=== PATIENT | male | born 1960 | race Caucasian/White ===

== ENCOUNTER 2020-03-05 11:49 | Outpatient (REF) | payer OTHER, SELFPAY ==
[2020-03-05 14:03] LABS: MANUAL DIFF FLAG NO
[2020-03-05 14:11] LABS: Basophils Absolute Auto 0.1 X10*3/uL (0.0-0.2); Basophils Percent Auto 0.8 % (0-2); Eosinophils Absolute Auto 0.2 X10*3/uL (0.0-0.4); Eosinophils Percent Auto 3.7 % (0-4); Hemoglobin 14.5 g/dl (14.0-18.0); Imm Gran Abs Auto 0.01 X10*3/uL (0.00-0.03); Imm Gran Pct Auto 0.2 % (0.0-0.4); Lymphocytes Absolute Auto 1.2 X10*3/uL (1.2-4.9); Lymphocytes Percent Auto 20.9 % (20-40); Mean Corpuscular HGB Conc 32.2 g/dl (31.0-36.0); Mean Corpuscular Volume 93.2 fL (80-98); Mean Platelet Volume 10.5 fL (9.4-12.4); Monocytes Absolute Auto 0.8 X10*3/uL (0.1-1.2); Monocytes Percent Auto 12.7 % (2-11); Neutrophils Absolute Auto 3.6 X10*3/uL (2.0-8.3); Neutrophils Percent Auto 61.7 % (45-73); Platelet Count 234 X10*3/uL (160-400); Red Blood Count 4.83 X10*6/uL (4.60-5.80); Red Cell Distribution Width 13.2 % (11.0-16.0); White Blood Count 5.9 X10*3/uL (4.8-10.8)
[2020-03-05 14:50] LABS: Alanine Aminotransferase 48 U/L (0-40); Albumin Level 4.9 g/dL (3.5-5.0); Alkaline Phosphatase 83 U/L (39-117); Anion Gap 13 (12-20); Aspartate Amino Transferase 32 U/L (5-37); Bilirubin Direct 0.2 mg/dL (0.0-0.5); Bilirubin Total 0.6 mg/dL (0.0-1.0); Blood Urea Nitrogen 26 mg/dL (9-16); Calcium 9.5 mg/dL (8.4-10.2); Carbon Dioxide 26 mmol/L (22-29); Chloride 109 mmol/L (96-108); Cholesterol 174 mg/dL; Estimated Glomerular Filt Rate > 60; Glucose Fasting 105 mg/dL (60-99); HDL Cholesterol 43 mg/dL; LDL Cholesterol Calculated 108 mg/dl; Potassium 4.3 mmol/l (3.3-5.1); Sodium 144 mmol/L (135-145); Total Protein 7.1 g/dL (6.5-8.0); Triglycerides 119 mg/dL
== END 2020-03-05 11:50 | disposition home or self-care (01) ==
LOC: HO.HMGCLDS 11:49
DX: I10 Essential (primary) hypertension (principal); E78.5 Hyperlipidemia, unspecified
CPT/HCPCS: 36415; 80053; 80061; 80076; 85025

== ENCOUNTER 2021-07-30 10:20 | Outpatient (REF) | payer OTHER, SELFPAY ==
[2021-07-30 10:22] LABS: MANUAL DIFF FLAG NO
[2021-07-30 10:30] LABS: Basophils Absolute Auto 0.1 X10*3/uL (0.0-0.2); Basophils Percent Auto 0.7 % (0-2); Eosinophils Absolute Auto 0.5 X10*3/uL (0.0-0.4); Eosinophils Percent Auto 6.7 % (0-4); Hematocrit 43.5 % (42.0-52.0); Hemoglobin 14.4 g/dl (14.0-18.0); Imm Gran Abs Auto 0.01 X10*3/uL (0.00-0.03); Imm Gran Pct Auto 0.1 % (0.0-0.4); Lymphocytes Absolute Auto 1.8 X10*3/uL (1.2-4.9); Lymphocytes Percent Auto 26.9 % (20-40); Mean Corpuscular HGB Conc 33.1 g/dl (31.0-36.0); Mean Corpuscular Volume 93.5 fL (80.0-98.0); Mean Platelet Volume 9.7 fL (9.4-12.4); Monocytes Absolute Auto 0.8 X10*3/uL (0.1-1.2); Monocytes Percent Auto 12.2 % (2-11); Neutrophils Absolute Auto 3.6 x10*3/uL (2.0-8.3); Neutrophils Percent Auto 53.4 % (45-73); Platelet Count 254 X10*3/uL (160-400); Red Blood Count 4.65 X10*6/uL (4.60-5.80); Red Cell Distribution Width 13.7 % (11.0-16.0); White Blood Count 6.8 X10*3/uL (4.8-10.8)
[2021-07-30 10:51] LABS: Appearance Urine CLEAR; Color Urine YELLOW; Glucose Urine UA NEG (NEG); Leukocyte Esterase Urine NEG (NEG); Nitrite Urine NEG (NEG); PH 5.5 (5.0-8.0); Specific Gravity - Urine 1.025 (1.005-1.025); Urine Blood NEG (NEG); Urine Ketones NEG (NEG); Urine Protein NEG (NEG-TRACE)
[2021-07-30 11:09] LABS: Alanine Aminotransferase 54 U/L (0-40); Albumin Level 4.4 g/dL (3.5-5.0); Alkaline Phosphatase 81 U/L (39-117); Anion Gap 12 (12-20); Aspartate Amino Transferase 41 U/L (5-37); Bilirubin Total 0.7 mg/dL (0.0-1.0); Blood Urea Nitrogen 19 mg/dL (9-16); Calcium 9.3 mg/dL (8.4-10.2); Carbon Dioxide 26 mmol/L (22-29); Chloride 109 mmol/L (96-108); Cholesterol 175 mg/dL; Estimated Glomerular Filt Rate > 60; Glucose Fasting 100 mg/dL (60-99); HDL Cholesterol 40 mg/dL; LDL Cholesterol Calculated 114 mg/dl; Potassium 4.3 mmol/L (3.3-5.1); Sodium 143 mmol/L (135-145); Total Protein 6.7 g/dL (6.5-8.0); Triglycerides 107 mg/dL
[2021-07-30 11:31] LABS: PSA,Total (Free>4and<10) 0.77 ng/mL (0.00-4.00)
== END 2021-07-30 10:21 | disposition home or self-care (01) ==
LOC: HO.LNP 10:20
PROVIDERS: Visit Provider Internal Medicine
DX: Z00.00 Encounter for general adult medical examination without abnormal findings (principal); Z12.5 Encounter for screening for malignant neoplasm of prostate; I10 Essential (primary) hypertension; E78.00 Pure hypercholesterolemia, unspecified
CPT/HCPCS: 80053; 80061; 81003; 84153; 85025

== ENCOUNTER 2022-08-04 12:37 | Outpatient (REF) | payer OTHER, SELFPAY ==
[2022-08-04 12:40] LABS: MANUAL DIFF FLAG NO
[2022-08-04 12:43] LABS: Basophils Absolute Auto 0.1 X10*3/uL (0.0-0.2); Basophils Percent Auto 0.9 % (0-2); Eosinophils Absolute Auto 0.5 X10*3/uL (0.0-0.4); Eosinophils Percent Auto 7.2 % (0-4); Hematocrit 46.4 % (42.0-52.0); Hemoglobin 15.3 g/dl (14.0-18.0); Imm Gran Abs Auto 0.01 X10*3/uL (0.00-0.03); Imm Gran Pct Auto 0.1 % (0.0-0.4); Lymphocytes Absolute Auto 2.4 X10*3/uL (1.2-4.9); Lymphocytes Percent Auto 31.3 % (20-40); Mean Corpuscular Hemoglobin 30.7 pg (27.0-33.0); Mean Platelet Volume 10.1 fL (9.4-12.4); Monocytes Absolute Auto 0.9 X10*3/uL (0.1-1.2); Monocytes Percent Auto 12.3 % (2-11); Neutrophils Absolute Auto 3.6 x10*3/uL (2.0-8.3); Neutrophils Percent Auto 48.2 % (45-73); Platelet Count 264 X10*3/uL (160-400); Red Blood Count 4.99 X10*6/uL (4.60-5.80); Red Cell Distribution Width 12.9 % (11.0-16.0); White Blood Count 7.5 X10*3/uL (4.8-10.8)
[2022-08-04 12:46] LABS: Appearance Urine Clear; Color Urine Yellow; Glucose Urine UA Negative (Negative); Leukocyte Esterase Urine Negative (Negative); Nitrite Urine Negative (Negative); Urine Blood Negative (Negative); Urine Ketones Negative (Negative); Urine Protein Trace mg/dL (Neg-Trace)
[2022-08-04 12:48] LABS: Bacteria Urine None Seen (None Seen); Hyaline Casts Urine 0-2 /LPF (0-2); RBC Urine 0-2 /HPF (0-2); Squamous Epithelial Cell Urine 0-2 /HPF (0-2); WBC Urine 0-5 /HPF (0-5)
[2022-08-04 16:01] LABS: Alanine Aminotransferase 46 U/L (0-40); Albumin Level 4.4 g/dL (3.5-5.0); Alkaline Phosphatase 94 U/L (39-117); Anion Gap 15 (12-20); Aspartate Amino Transferase 38 U/L (5-37); Bilirubin Total 0.5 mg/dL (0.0-1.0); Blood Urea Nitrogen 24 mg/dL (9-16); Calcium 9.3 mg/dL (8.4-10.2); Carbon Dioxide 26 mmol/L (22-29); Chloride 110 mmol/L (96-108); Cholesterol 173 mg/dL; Estimated Glomerular Filt Rate > 60; Glucose Fasting 105 mg/dL (60-99); HDL Cholesterol 43 mg/dL; LDL Cholesterol Calculated 109 mg/dl; Potassium 3.9 mmol/L (3.3-5.1); Sodium 147 mmol/L (135-145); Total Protein 6.4 g/dL (6.5-8.0); Triglycerides 107 mg/dL
[2022-08-04 16:10] LABS: PSA,Total (Free>4and<10) 0.86 ng/mL (0.00-4.00)
== END 2022-08-04 12:38 | disposition home or self-care (01) ==
LOC: HO.LNP 12:37
PROVIDERS: Visit Provider Internal Medicine
DX: Z00.00 Encounter for general adult medical examination without abnormal findings (principal); Z12.5 Encounter for screening for malignant neoplasm of prostate; E78.00 Pure hypercholesterolemia, unspecified; I10 Essential (primary) hypertension
CPT/HCPCS: 80053; 80061; 81001; 84153; 85025

== ENCOUNTER 2022-10-31 14:28 | Outpatient (REF) | payer OTHER, SELFPAY ==
--- NOTE | ~2022-10-31 | US_ITS ---
EXAMINATION: ULTRASOUND EXTREMITY NONVASCULAR CLINICAL INFORMATION: Left axillary lymphadenopathy. COMPARISON: None available. TECHNIQUE: Grayscale and color imaging of the left axilla using a linear transducer. FINDINGS: There are 2 deep left axillary lymph nodes. These measure 2.6 x 0.6 x 1.4 cm and 3 x 0.9 x 2.3 cm. These are upper normal in size. These demonstrate normal ultrasound morphology and flow. US/US extremity nonvascular coyle IMPRESSION: 2 axillary lymph nodes seen by ultrasound. These are both upper normal in size and demonstrate normal ultrasound morphology and flow.
== END 2022-10-31 14:29 | disposition home or self-care (01) ==
LOC: HO.HMGCX 14:28
PROVIDERS: PCP Internal Medicine; Visit Provider Internal Medicine
DX: R59.0 Localized enlarged lymph nodes (principal)
CPT/HCPCS: 76882

== ENCOUNTER 2023-05-18 11:58 | Outpatient (REF) | payer OTHER, SELFPAY ==
[2023-05-18 13:53] LABS: Alanine Aminotransferase 43 U/L (0-40); Albumin Level 4.5 g/dL (3.5-5.0); Alkaline Phosphatase 90 U/L (39-117); Aspartate Amino Transferase 34 U/L (5-37); Bilirubin Direct 0.2 mg/dL (0.0-0.5); Bilirubin Total 0.7 mg/dL (0.0-1.0); Total Protein 7.2 g/dL (6.5-8.0)
[2023-05-18 14:07] LABS: Cholesterol 173 mg/dL (<200); HDL Cholesterol 37 mg/dL (>40); LDL Cholesterol Calculated 102 mg/dL (<100); Triglycerides 171 mg/dL (<150)
[2023-05-18 14:45] LABS: Reflex LDLD? No
== END 2023-05-18 11:59 | disposition home or self-care (01) ==
LOC: HO.HMGCLDS 11:58
PROVIDERS: PCP Internal Medicine; Visit Provider Internal Medicine
DX: E78.00 Pure hypercholesterolemia, unspecified (principal)
CPT/HCPCS: 36415; 80061; 80076

== ENCOUNTER 2023-12-04 11:31 | Outpatient (REF) | payer OTHER, SELFPAY ==
[2023-12-04 13:58] LABS: MANUAL DIFF FLAG NO
[2023-12-04 14:10] LABS: Basophils Percent Auto 0.6 % (0-2); Eosinophils Absolute Auto 0.4 X10*3/uL (0.0-0.4); Hematocrit 46.4 % (42.0-52.0); Hemoglobin 15.4 g/dl (14.0-18.0); Imm Gran Abs Auto 0.02 X10*3/uL (0.00-0.03); Imm Gran Pct Auto 0.3 % (0.0-0.4); Lymphocytes Absolute Auto 1.7 X10*3/uL (1.2-4.9); Lymphocytes Percent Auto 26.9 % (20-40); Mean Corpuscular HGB Conc 33.2 g/dl (31.0-36.0); Mean Corpuscular Hemoglobin 30.7 pg (27.0-33.0); Mean Corpuscular Volume 92.6 fL (80.0-98.0); Mean Platelet Volume 10.3 fL (9.4-12.4); Monocytes Absolute Auto 0.8 X10*3/uL (0.1-1.2); Monocytes Percent Auto 13.2 % (2-11); Neutrophils Absolute Auto 3.4 x10*3/uL (2.0-8.3); Platelet Count 246 X10*3/uL (160-400); Red Blood Count 5.01 X10*6/uL (4.60-5.80); Red Cell Distribution Width 13.4 % (11.0-16.0); White Blood Count 6.4 X10*3/uL (4.8-10.8)
[2023-12-04 15:00] LABS: Alanine Aminotransferase 44 U/L (0-40); Albumin Level 4.5 g/dL (3.5-5.0); Alkaline Phosphatase 98 U/L (39-117); Anion Gap 12 (12-20); Aspartate Amino Transferase 33 U/L (5-37); Bilirubin Total 0.8 mg/dL (0.0-1.0); Blood Urea Nitrogen 23 mg/dL (9-16); Calcium 9.9 mg/dL (8.4-10.2); Carbon Dioxide 26 mmol/L (22-29); Chloride 111 mmol/L (96-108); Cholesterol 177 mg/dL (<200); Estimated Glomerular Filt Rate > 60; Glucose Random 106 mg/dL (60-115); HDL Cholesterol 42 mg/dL (>40); LDL Cholesterol Calculated 102 mg/dL (<100); Sodium 145 mmol/L (135-145); Total Protein 7.1 g/dL (6.5-8.0); Triglycerides 165 mg/dL (<150)
[2023-12-04 15:11] LABS: PSA,Total (Free>4and<10) 0.82 ng/mL (0.00-4.00)
== END 2023-12-04 11:32 | disposition home or self-care (01) ==
LOC: HO.HMGCLDS 11:31
PROVIDERS: PCP Internal Medicine; Visit Provider Internal Medicine
DX: Z00.00 Encounter for general adult medical examination without abnormal findings (principal); E78.00 Pure hypercholesterolemia, unspecified
CPT/HCPCS: 36415; 80053; 80061; 84153; 85025

== ENCOUNTER 2024-12-05 11:21 | Outpatient (REF) | payer MEDICARE, SELFPAY ==
--- OUTSIDE RECORDS SUMMARY | 2024-12-02 04:00 | XMS_ITS ---
Author Organization Alo Gomez MD Address [address] [place] [phone] Care Team Providers Care Edge Trimmer Mechanic Name Role Phone Alo Gomez Primary Care Provider [phone] REASON FOR VISIT FASTING LABS Encounters Encounter Location Date Provider Diagnosis Alo Gomez MD [address] [place] [address] [address] [place] [phone] 12/02/2024 Alo Gomez Blood tests for rout [...] Treatment Pending Test Test Name Order Date Complete Blood Count Auto Diff 5 Comprehensive [place]. Panel Fast 5 Lipid Panel 12/02/2024 PSA,Total (Free>4and<10) 12/02/2024 UA ClnCatch+Micro w/rflx Cult 12/02/2024 Next Appt Details Provider Name:Alo sotelor, 12/09/2024 02:30:00 PM, [address], [address], [place], [place], [phone], Progress Notes * SILAS NIXONDOB:[birth year] (64 yo M)Acc No.[id number]:12/02/2024 Progress Note Patient: SILAS MCGUIRE Provider: Fartun Gomez MD :1960 A ge:64 Y S ex:Male Date:12/02/2024 Address:[address] [place], [place] [phone] Subjective: * Chief Complaints: * 1 . FASTING LABS. * Medical History: Objective: * Vitals: Assessment: * Assessment: 1. B lood tests for routine general physical examination - Z00.00 (Primary) 2 .?Hypercholesterolemia - E78.00 3 . E ssential hypertension - I10 Plan: * Treatment: 2. H ypercholesterolemia L AB: Complete Blood Count Auto Diff L AB: Comprehensive [place]. Panel Fast L AB: Lipid Panel L AB: PSA,Total (Free>4and<10) L AB: UA ClnCatch+Micro w/rflx Cult 3. E ssential hypertension L AB: Complete Blood Count Auto Diff L AB: Comprehensive [place]. Panel Fast L AB: Lipid Panel L AB: PSA,Total (Free>4and<10) L AB: UA ClnCatch+Micro w/rflx Cult * * The named appointment provid er may or may not be the originator of this progress note, and it is not deemed complete until electronically signed by the appointment provider. Sign off status: Pending * Provider: Fartun Gomez MD Date: 12/02/2024 Generated for [place]/Kainitting on: 12/05/2024 12:03 PM EDT
[2024-12-05 14:28] LABS: MANUAL DIFF FLAG NO
[2024-12-05 14:34] LABS: Hematocrit 43.7 % (42.0-52.0); Hemoglobin 14.7 g/dl (14.0-18.0); Imm Gran Abs Auto 0.01 X10*3/uL (0.00-0.03); Imm Gran Pct Auto 0.2 % (0.0-0.4); Lymphocytes Absolute Auto 1.7 X10*3/uL (1.2-4.9); Mean Corpuscular HGB Conc 33.6 g/dl (31.0-36.0); Mean Corpuscular Hemoglobin 30.8 pg (27.0-33.0); Mean Corpuscular Volume 91.6 fL (80.0-98.0); NRBC Abs Auto 0.000 X10*3/uL (0.0-0.012); NRBC Pct Auto 0.0 /100WBC (0.0-0.2); Platelet Count 253 X10*3/uL (160-400); Red Blood Count 4.77 X10*6/uL (4.60-5.80); White Blood Count 6.2 X10*3/uL (4.8-10.8)
[2024-12-05 14:55] LABS: Alanine Aminotransferase 78 U/L (0-40); Albumin Level 4.5 g/dL (3.5-5.0); Alkaline Phosphatase 86 U/L (39-117); Anion Gap 13 (12-20); Aspartate Amino Transferase 65 U/L (5-37); Blood Urea Nitrogen 19 mg/dL (9-16); Calcium 9.1 mg/dL (8.4-10.2); Carbon Dioxide 23 mmol/L (22-29); Chloride 111 mmol/L (96-108); Cholesterol 153 mg/dL (<200); Estimated Glomerular Filt Rate > 60; HDL Cholesterol 44 mg/dL (>40); Potassium 3.7 mmol/L (3.3-5.1); Sodium 143 mmol/L (135-145); Total Protein 6.6 g/dL (6.5-8.0); Triglycerides 130 mg/dL (<150)
[2024-12-05 15:05] LABS: PSA,Total (Free>4and<10) 3.09 ng/mL (0.00-4.00)
== END 2024-12-05 11:22 | disposition home or self-care (01) ==
LOC: HO.HMGCLDS 11:21
PROVIDERS: PCP Internal Medicine; Visit Provider Internal Medicine
DX: Z00.00 Encounter for general adult medical examination without abnormal findings (principal); E78.00 Pure hypercholesterolemia, unspecified; I10 Essential (primary) hypertension; Z12.5 Encounter for screening for malignant neoplasm of prostate
CPT/HCPCS: 36415; 80053; 80061; 84153; 85025

== ENCOUNTER 2025-01-03 11:31 | Outpatient (REF) | payer MEDICARE, SELFPAY ==
--- OUTSIDE RECORDS SUMMARY | 2025-01-03 06:00 | XMS_ITS ---
Author Organization Alo Gomez MD Address [address] [place] [address] [address] [place] [phone] Care Team Providers Care Ornamental Metal Worker Name Role Phone Alo Gomez Primary Care Provider [phone] REASON FOR VISIT PSA Encounters Encounter Location Date Provider Diagnosis Alo Gomez MD [address] [place] [address] [place] [phone] 01/03/2025 Alo Gomez Rising PSA level R97.20 Assessments Encounter Date Diagnosis (ICD Code) Assessment Notes Treatment Notes Treatment Clinical Notes Section Notes 01/03/2025 Rising PSA level (ICD-10 - R97.20) Plan Of Treatment Pending Test Test Name Order Date PSA,Total (Free>4and<10) 01/03/2025 Next Appt Details Provider Name:Alo dalton, 01/09/2025 02:15:00 PM, [address] [place] [address], [address], [phone], Provider Name:Alo dalton, 06/09/2025 07:00:00 AM, [address] [place] [address], [address], [phone], Provider Name:Alo dalton, 06/13/2025 01:30:00 PM, [address] [place] [address], [address], [phone], Provider Name:Alo dalton, 12/04/2025 07:45:00 AM, [address] [place] [address], [phone], Provider Name:Alo Diallo ier, 12/11/2025 01:00:00 PM, [address], [address], [place], [phone], Progress Notes * SILAS NIXONDOB:[birth year] (64 yo M)Acc No.[id number]:01/03/2025 Progress Note Patient: SILAS MCGUIRE Provider: Fartun Gomez MD :1960 A ge:64 Y S ex:Male Date:01/03/2025 Address:[address] [place], [place] [phone] Subjective: * Chief Complaints: * 1 . PSA. * Medical History: Objective: * Vitals: Assessment: * Assessment: 1. R ising PSA level - R97.20 Plan: * Treatment: * Procedure Codes: 3 6415 VENIPUNCT, ROUTINE* * * The named appointment provid er may or may not be the originator of this progress note, and it is not deemed complete until electronically signed by the appointment provider. Sign off status: Pending * Provider: Fartun Gomez MD Date: 0 01/03/2025 Generated for Kg river/Ross/Kainitting on: 01/03/2025 11:34 AM EDT
[2025-01-03 12:53] LABS: PSA,Total (Free>4and<10) 2.42 ng/mL (0.00-4.00)
== END 2025-01-03 11:32 | disposition home or self-care (01) ==
LOC: HO.LNP 11:31
PROVIDERS: Visit Provider Internal Medicine
DX: R97.20 Elevated prostate specific antigen [PSA] (principal); Z12.5 Encounter for screening for malignant neoplasm of prostate
CPT/HCPCS: 84153

== ENCOUNTER 2025-02-04 10:34 | Outpatient (REF) | payer MEDICARE, SELFPAY ==
--- OUTSIDE RECORDS SUMMARY | 2024-12-02 04:00 | XMS_ITS ---
Author Organization Alo Gomez MD Address [address] [place] [phone] Care Team Providers Care Exercise Scientist Name Role Phone Alo Gomez Primary Care Provider [phone] Results Component Value Reference Range Notes Complete Blood Count Auto Di ff Reviewed date:12/05/2024 05:14:17 PM Interpretation: Performing Lab:[facility], [address] [place] [id number] Notes/Report: White Blood Count 6.2 4.8-10.8 X10*3/uL Red Blood Count 4.77 4.60-5.80 X10*6/uL Hemoglobin 14.7 14.0-18.0 g/dl Hematocrit 43.7 42.0-52.0 % Mean Corpuscular Volume 91.6 80.0-98.0 fL Mean Corpuscular Hemoglobin 30.8 27.0-33.0 pg Mean Corpuscular HGB Conc 33.6 31.0-36.0 g/dl Red Cell Distribution Width 12.9 11.0-16.0 % Platelet Count 253 160-400 X10*3/uL Mean Platelet Volume 10.2 9.4-12.4 fL Neutrophils Percent Auto 54.8 45-73 % Imm Gran Pct Auto 0.2 0.0-0.4 % Lymphocytes Percent Auto 26.8 20-40 % Monocytes Percent Auto 13.5 2-11 % Eosinophils Percent Auto 3.9 0-4 % Basophils Percent Auto 0.8 0-2 % NRBC Pct Auto 0.0 0.0-0.2 /100WBC Neutrophils Absolute Auto 3.4 2.0-8.3 x10*3/u L Imm Gran Abs Auto 0.01 0.00-0.03 X10*3/uL Lymphocytes Absolute Auto 1.7 1.2-4.9 X10*3/u L Monocytes Absolute Auto 0.8 0.1-1.2 X10*3/uL Eosinophils Absolute Auto 0.2 0.0-0.4 X10*3/u L Basophils Absolute Auto 0.1 0.0-0.2 X10*3/uL NRBC Abs Auto 0.000 0.0-0.012 X10*3/uL Lipid Panel Reviewed date:12/05/2024 05:14:24 PM Interpretation: Performing Lab:[address] [id number] Notes/Report: Triglycerides 130 <150 mg/dL Desirable Triglyceride: less than 150 mg/dL Borderline High Triglyceride 150-199 mg/dL High Triglyceride: 200-499 mg/dL Very High Triglyceride: greater than or equal to 5OO mg/dL Cholesterol 153 <200 mg/dL Desirable Cholesterol: less than 200 mg/dL Borderline High Cholesterol: 200-239 mg/dL High Cholesterol: greater than 239 mg/dL LDL Cholesterol Calculated 83 <100 mg/dL Desirable LDL: less than 100 mg/dL Near Optimal/Above Optimal LDL: 110-129 mg/dL Borderline High LDL: 130-159 mg/dL High LDL: 160-189 mg/dL Very High LDL: greater than or equal to 190 mg/dL HDL Cholesterol 44 >40 mg/dL Desirable HDL: greater than 40 mg/dL Note: This HDL assay may give artificially low results in patients with liver disease. PSA,Total (Free>4and<10) Reviewed date:12/10/2024 07:13:08 AM Interpretation:12-09-2024 Performing Lab:[address] [id number] Notes/Report: PSA,Total (Free>4and<10) 3.09 0.00-4.00 ng/mL A Free PSA was not performed: The percentage of Free PSA can be used to enhance the differentiation of prostate cancer from benign prostatic disease in subjects whose PSA levels are between 4.0 and 10.0 ng/mL. For subjects whose PSA levels are below 4.0 or above 10.0 ng/mL, the risk of prostate cancer is determined on the basis of the PSA alone. Therefore the % Free PSA is recommended only for those subjects whose PSA levels are between 4.0 and 10.0 ng/mL. PSA methodology: Castro Alinity i Chemiluminescent Microparticle Immunoassay (CMIA) REASON FOR VISIT FASTING LABS Encounters Encounter Location Date Provider Diagnosis Alo Gomez MD [address] [place] [address] [place] [phone] 12/02/2024 Alo Gomez Blood tests for rout ine general physical examination Z00.00 ; Hypercholesterolemia E78.00 and Essential hypertension I10 Assessments Encounter Date Diagnosis (ICD Code) Assessment Notes Treatment Notes Treatment Clinical Notes Section Notes 12/02/2024 Blood tests for rout ine general physical examination (ICD-10 - Z00.00) 12/02/2024 Hypercholesterolemia (ICD-10 - E78.00) 12/02/2024 Essential hypertensi on (ICD-10 - I10) Plan Of Treatment Pending Test Test Name Order Date Comprehensive [place]. Panel Fast UA ClnCatch+Micro w/rflx Cult 12/02/2024 Next Appt Details Provider Name:Alo dalton, 06/09/2025 07:00:00 AM, [address] [place] [address], [place] [address], [place], [place], [phone], Provider Name:Alo dalton, 06/13/2025 01:30:00 PM, [address] [place] [address], [address], [phone], Provider Name:Alo dalton, 12/04/2025 07:45:00 AM, [address] [place] [address], [address], [phone], Provider Name:Alo dalton, 12/11/2025 01:00:00 PM, [address] [place] [address], [address], [phone], Progress Notes * SILAS NIXONDOB:[birth year] (64 yo M)Acc No.[id number]:12/02/2024 Progress Note Patient: SILAS MCGUIRE Provider: Fartun Gomez MD :1960 A ge:64 Y S ex:Male Date:12/02/2024 Address:[address] [place], [place] [phone] Subjective: * Chief Complaints: * 1 . FASTING LABS. * Medical History: Objective: * Vitals: Assessment: * Assessment: 1. B lood tests for routine general physical examination - Z00.00 (Primary) 2 .?Hypercholesterolemia - E78.00 3 . E ssential hypertension - I10 Plan: * Treatment: 2. H ypercholesterolemia L AB: Comprehensive [place]. Panel Fast L AB: UA ClnCatch+Micro w/rflx Cult L AB: Complete Blood Count Auto Diff (Collection Date & Time - 12/05/2024 11:27 AM) L AB: Lipid Panel (Collection Date & Time - 12/05/2024 11:27 AM) L AB: PSA,Total (Free>4and<10) (Collection Date & Time - 12/05/2024 11:27 AM) 3. E ssential hypertension L AB: Comprehensive [place]. Panel Fast L AB: UA ClnCatch+Micro w/rflx Cult L AB: Complete Blood Count Auto Diff (Collection Date & Time - 12/05/2024 11:27 AM) L AB: Lipid Panel (Collection Date & Time - 12/05/2024 11:27 AM) L AB: PSA,Total (Free>4and<10) (Collection Date & Time - 12/05/2024 11:27 AM) * * The named appointment provid er may or may not be the originator of this progress note, and it is not deemed complete until electronically signed by the appointment provider. Sign off status: Pending * Provider: Fartun Gomez MD Date: 0 12/02/2024 Generated for [place] river/Ross/Kainitting on: 0 02/04/2025 12:24 PM EDT
--- OUTSIDE RECORDS SUMMARY | 2024-12-09 10:30 | XMS_ITS ---
Author Organization Alo Gomez MD Address [address] [place] [phone] Care Team Providers Care Leveling Machine Operator Name Role Phone Alo Gomez Primary Care Provider Allergies No Known Allergies REASON FOR VISIT ANNUAL EXAM/ must see PSA Medications Medication SIG (Take, Route, Frequency, Duration) Notes Start Date End Date Status Losartan Potassium 100 MG TAKE 1 TABLET BY MOUTH ONCE DAILY Active Metoprolol Tartrate 100 MG TAKE 1 TABLET BY MOUTH TWICE DAILY WITH FOOD Active NIFEdipine ER Osmotic Release 60 MG TAKE 1 TABLET BY MOUTH ONCE DAILY ON AN EMPTY STOMACH Active Fish Oil 1200 MG 1 capsule Orally Onc e a day for 30 day(s) Active Aspirin 81 81 MG 1 tablet Orally Once a day for 30 day(s) Active Atorvastatin Calcium 80 MG TAKE 1 TABLET BY MOUTH ONCE DAILY Active Social History Tobacco Use: Social History Observation Description Date Details (start date - stop date) Former Smoker NA - NA Tobacco Use/Smoking Question Answer Notes Patient is a former smoker How long has it been since y ou last smoked? 5-10 years Additional Findings: Tobacco Non-User Fo rmer smoker, currently using no form of tobacco Alcohol Screen Question Answer Notes Did you have a drink contain ing alcohol in the past year? Yes How often did you have a dri nk containing alcohol in the past year? 2 to 4 times a month (2 points) How many drinks did you have on a typical day when you were drinking in the past year? 1 or 2 drinks (0 point) How often did you have 6 or more drinks on one occasion in the past year? Never (0 point) Points 2 Interpretation Negative Vital Signs Blood pressure systolic 144 mm Hg 12/10/19 25 Blood pressure diastolic 70 mm Hg 025 Height 73 in 12/09/2024 Weight 230 lbs 12/09/2024 BMI 30.34 kg/m2 12/09/2024 Encounters Encounter Location Date Provider Diagnosis Alo Gomez MD [address] [place] [address] [address] [place], [place] [phone] 12/09/2024 Alo Gomez Rising PSA level R97 .20 ; Encounter for general adult medical examination without abnormal findings Z00.00 ; Hypercholesterolemia E78.00 ; Essential hypertension I10 and Depression screening Z13.31 Assessments Encounter Date Diagnosis (ICD Code) Assessment Notes Treatment Notes Treatment Clinical Notes Section Notes 12/09/2024 Rising PSA level (IC D-10 - R97.20) will recheck in 3 months 12/09/2024 Encounter for genera l adult medical examination without abnormal findings (ICD-10 - Z00.00) Labs reviewed and discussed with patient 12/09/2024 Hypercholesterolemia (ICD-10 - E78.00) doing well on meds, will contonue current regiment 12/09/2024 Essential hypertensi on (ICD-10 - I10) well controlled, will continue current regiment 12/09/2024 Depression screening (ICD-10 - Z13.31) negative screen Plan Of Treatment Medication Medication Name Sig Start Date Stop Date Notes Losartan Potassium 100 MG TAKE 1 TABLET BY MOUTH ONCE DAILY Metoprolol Tartrate 100 MG TAKE 1 TABLET BY MOUTH TWICE DAILY WITH FOOD NIFEdipine ER Osmotic Releas e 60 MG TAKE 1 TABLET BY MOUTH ONCE DAILY ON AN EMPTY STOMACH Atorvastatin Calcium 80 MG TAKE 1 TABLET BY MOUTH ONCE DAILY Treatment Notes Assessment Notes Rising PSA level will recheck in 3 mo [facility] Encounter for general adult medical examination without abnormal findings Labs reviewed and discussed with patient Hypercholesterolemia doing well on meds, will contonue current regiment Essential hypertension well controlled, will continue current regiment Depression screening negative screen Next Appt Details Follow Up: 4 Weeks, Reason: Provider Name:Alo dalton, 06/09/2025 07:00:00 AM, [address] [place] [address], [address], [place], [place], [phone], Provider Name:Alo dalton, 06/13/2025 01:30:00 PM, [address] [place] [address], [address], [place], [place], [phone], Provider Name:Alo Diallo ier, 12/04/2025 07:45:00 AM, [address], [address], [place], [phone], Provider Name:Alo Diallo ier, 12/11/2025 01:00:00 PM, [address], [address], [place], [phone], Progress Notes * SILAS NIXONDOB:[birth year] (64 yo M)Acc No.[id number]:12/09/2024 Progress Notes Patient: SILAS MCGUIRE Provider: Fartun Gomez MD :1960 A ge:64 Y S ex:Male Date:12/09/2024 Address:[address] [place], [place] [phone] Subjective: * Chief Complaints: * A NNUAL EXAM/ must see PSA * HPI: D epression Screening: PHQ-9 L ittle interest or pleasure in doing things N ot at all, F eeling down, depressed, or hopeless N ot at all, T rouble falling or staying asleep, or sleeping too much N ot at all, F eeling tired or having little energy N ot at all, P oor appetite or overeating N ot at all, F eeling bad about yourself or that you are a failure, or have let yourself or your family down N ot at all, T rouble concentrating on things, such as reading the newspaper or watching television N ot at all, M oving or speaking so slowly that other people could have noticed; or the opposite, being so fidgety or restless that you have been moving around a lot more than usual N ot at all, T houghts that you would be better off or of hurting yourself in some way N ot at all, T otal Score 0 . I nterpretation and Intervention D epression Screening Findings N egative, F ollow-Up for Depression : review of PHQ-9 found negative result, no follow-up needed. C ommunication Needs: Communication Needs D oes the patient have a hearing impairment N o, D oes the patient have a vision impairment? Y es, I f yes, what is the vision impairment? G lasses, D oes the patient have a cognition impairment? N o. F all Risk: History H ave you had any falls with injury in the past year? N o, H ave you had two or more falls in the past year? N o. S DELMIS Questions: SDOH Questions I n the past year have you been worried about losing housing? N o, I n the past year have you or any family members you live with been unable to get any of the following when it was really needed? Check all that apply: N one. S ymptom(s): patient is a 64 yo male here for annual visit with review of recent labs and follow up of chronic issues. * ROS: G eneral/Constitutional: Change in appetite d enies. C hills d enies. F ever d enies. O phthalmologic: Blurred vision d enies. D ischarge d enies. P ain d enies. E NT: Decreased hearing d enies. S ore throat d enies.?Swollen glands d enies. E ndocrine: Cold intolerance d enies. E xcessive thirst d enies. H eat intolerance d enies. W eight loss d enies. R espiratory: Cough d enies. S hortness of breath at rest d enies. S hortness of breath with exertion d enies. W heezing d enies. C ardiovascular: Chest pain at rest d enies. C hest pain with exertion?denies. I rregular heartbeat d enies. S hortness of breath d enies. ? G astrointestinal: Abdominal pain d enies. C hange in bowel habits d enies. D iarrhea d enies. N ausea d enies. R ectal bleeding d enies. V omiting d enies . G enitourinary: Blood in urine d enies. D ifficulty urinating d enies. F requent urination d enies. M usculoskeletal: Painful joints d enies. W eakness d enies. ? S kin: Dry skin d enies. I tching d enies. D enies?Mole(s), changes in moles, new moles or any lesions of concern. D enies P hotosensitivity. R ginger d enies. N eurologic: Dizziness d enies. F ainting d enies. H eadache?denies. * Medical History: * Surgical History: * Hospitalization/Major Diagno stic Procedure: * Family History: F ather: 89 yrs. M other: 86 yrs. 1 brother(s) . . Father - kidney failure Mother- lung cancer 1 brother 62 [place], Denies mental health/substance abuse family history, Denies mental health/substance abuse family history, No pertinent family medical history. * Social History: T obacco Use: T obacco Use/Smoking P atient is a f ormer smoker, H ow long has it been since you last smoked? 5 -10 years, A dditional Findings: Tobacco Non-User F ormer smoker, currently using no form of tobacco. D rugs/Alcohol: A lcohol Screen D id you have a drink containing alcohol in the past year? Y es, H ow often did you have a drink containing alcohol in the past year? 2 to 4 times a month (2 points), H ow many drinks did you have on a typical day when you were drinking in the past year? 1 or 2 drinks (0 point), H ow often did you have 6 or more drinks on one occasion in the past year? N ever (0 point), P oints 2 , I nterpretation N egative. M iscellaneous: C affeine: yes, frequency:, 1-2 cups per day. Children: no. Community involvements: no. Exercise: yes, weights, karate, hikes. Housing: owning. Living with: spouse. Marital status: . Occupation: weeks/months/years, works part-time. Pets: none. Travel outside of the [place]: no. * Medications: T akingAspirin 81 81 MG Tablet Delayed Release 1 tablet Orally Once a day Fish Oil 1200 MG Capsule 1 capsule Orally Once a day Atorvastatin Calcium 80 MG Tablet TAKE 1 TABLET BY MOUTH ONCE DAILY NIFEdipine ER Osmotic Release 60 MG Tablet Extended Release 24 Hour TAKE 1 TABLET BY MOUTH ONCE DAILY ON AN EMPTY STOMACH Metoprolol Tartrate 100 MG Tablet TAKE 1 TABLET BY MOUTH TWICE DAILY WITH FOOD Losartan Potassium 100 MG Tablet TAKE 1 TABLET BY MOUTH ONCE DAILY Medication List reviewed and reconciled with the patientTaking Aspirin 81 81 MG Tablet Delayed Release 1 tablet Orally Once a day Taking Fish Oil 1200 MG Capsule 1 capsule Orally Once a day Taking Atorvastatin Calcium 80 MG Tablet TAKE 1 TABLET BY MOUTH ONCE DAILY Taking NIFEdipine ER Osmotic Release 60 MG Tablet Extended Release 24 Hour TAKE 1 TABLET BY MOUTH ONCE DAILY ON AN EMPTY STOMACH Taking Metoprolol Tartrate 100 MG Tablet TAKE 1 TABLET BY MOUTH TWICE DAILY WITH FOOD Taking Losartan Potassium 100 MG Tablet TAKE 1 TABLET BY MOUTH ONCE DAILY Medication List reviewed and reconciled with the patient * Allergies: N .K.D.A.yes[Allergies Verified] Objective: * Vitals: H t: 73, Wt: 230, BMI:30.34, BP:144/70, Repeat BP:132/68, Wt-k.33. * P ast Orders: L ab:Comprehensive Met. Panel (Order Date - 12/05/2024) (Collection Date & Time - 12/05/2024 11:27 AM) Value Reference Range Sodium 143 135-145 - mmol/L Bilirubin Total 0.5 0.0-1.0 - mg/dL Aspartate Amino Transferase 65 H 5-37 - U/L Alanine Aminotransferase 78 H 0-40 - U/L Total Protein 6.6 6.5-8.0 - g/dL Albumin Level 4.5 3.5-5.0 - g/dL Alkaline Phosphatase 86 39-117 - U/L Potassium 3.7 3.3-5.1 - mmol/L Chloride 111 H 96-108 - mmol/L Carbon Dioxide 23 22-29 - mmol/L Anion Gap 13 12-20 - Blood Urea Nitrogen 19 H 9-16 - mg/dL Creatinine 0.91 0.5-1.4 - mg/dL Estimated Glomerular Filt Rate > 60 - Glucose Random 112 60-115 - mg/dL Calcium 9.1 8.4-10.2 - mg/dL L ab:Lipid Panel (Order Date - 12/02/2024) (Collection Date & Time - 12/05/2024 11:27 AM) Value Reference Range Triglycerides 130 <150 - mg/dL Cholesterol 153 <200 - mg/dL LDL Cholesterol Calculated 83 <100 - mg/dL HDL Cholesterol 44 >40 - mg/dL L ab:Complete Blood Count Auto Diff (Order Date - 12/02/2024) (Collection Date & Time - 12/05/2024 11:27 AM) Value Reference Range White Blood Count 6.2 4.8-10.8 - X10*3/uL Red Blood Count 4.77 4.60-5.80 - X10*6/uL Hemoglobin 14.7 14.0-18.0 - g/dl Hematocrit 43.7 42.0-52.0 - % Mean Corpuscular Volume 91.6 80.0-98.0 - fL Mean Corpuscular Hemoglobin 30.8 27.0-33.0 - pg Mean Corpuscular HGB Conc 33.6 31.0-36.0 - g/ dl Red Cell Distribution Width 12.9 11.0-16.0 - % Platelet Count 253 160-400 - X10*3/uL Mean Platelet Volume 10.2 9.4-12.4 - fL Neutrophils Percent Auto 54.8 45-73 - % Imm Gran Pct Auto 0.2 0.0-0.4 - % Lymphocytes Percent Auto 26.8 20-40 - % Monocytes Percent Auto 13.5 H 2-11 - % Eosinophils Percent Auto 3.9 0-4 - % Basophils Percent Auto 0.8 0-2 - % NRBC Pct Auto 0.0 0.0-0.2 - /100WBC Neutrophils Absolute Auto 3.4 2.0-8.3 - x10* 3/uL Imm Gran Abs Auto 0.01 0.00-0.03 - X10*3/uL Lymphocytes Absolute Auto 1.7 1.2-4.9 - X10* 3/uL Monocytes Absolute Auto 0.8 0.1-1.2 - X10*3/ uL Eosinophils Absolute Auto 0.2 0.0-0.4 - X10* 3/uL Basophils Absolute Auto 0.1 0.0-0.2 - X10*3/ uL NRBC Abs Auto 0.000 0.0-0.012 - X10*3/uL * Examination: G eneral Examination: GENERAL APPEARANCE: w ell developed, well nourished, in no acute distress. HEAD: n ormocephalic, atraumatic. EYES: p upils equal, round, reactive to light and accommodation, sclera non-icteric. EARS: n ormal. ORAL CAVITY: m ucosa moist. THROAT: c lear. NECK/THYROID: n garrett supple, full range of motion, no cervical lymphadenopathy, no bruits. SKIN: w arm and dry, no suspicious lesions. HEART: r egular rate and rhythm, S1, S2 normal, no murmurs.? LUNGS: c lear to auscultation bilaterally. ABDOMEN: s oft, nontender, nondistended, bowel sounds present, normal, no organomegaly , no masses palpable. RECTAL EXAM: d eclined. MALE GENITOURINARY: d eclined. EXTREMITIES: n o clubbing, cyanosis, or edema. NEUROLOGIC: n onfocal, motor strength normal upper and lower extremities, sensory exam intact. Assessment: * Assessment: 1. E ncounter for general adult medical examination without abnormal findings - Z00.00 (Primary) 2 . R ising PSA level - R97.20 3 . H ypercholesterolemia - E78.00 4 . E ssential hypertension - I10 5 . D epression screening - Z13.31 Plan: * Treatment: 2. R ising PSA level L AB: PSA,Total (Free>4and<10) (Ordered for 01/06/2025) Notes: will recheck in 3 months 3. H ypercholesterolemia Continue Atorvastatin Calcium Tablet, 80 MG, TAKE 1 TABLET BY MOUTH ONCE DAILY. Notes: doing well on meds, will contonue current regiment 4. E ssential hypertension Continue NIFEdipine ER Osmotic Release Tablet Extended Release 24 Hour, 60 MG, TAKE 1 TABLET BY MOUTH ONCE DAILY ON AN EMPTY STOMACH; C ontinue Metoprolol Tartrate Tablet, 100 MG, TAKE 1 TABLET BY MOUTH TWICE DAILY WITH FOOD; C ontinue Losartan Potassium Tablet, 100 MG, TAKE 1 TABLET BY MOUTH ONCE DAILY. Notes: well controlled, will continue current regiment 5. D epression screening Notes: negative screen * Procedure Codes: * Follow Up: 4 Weeks * * Sign off status: Completed true * Provider: Fartun Gomez MD Date: 0 12/09/2024 Generated for Kg river/Ross/Kainitting on: 0 02/04/2025 12:25 PM EDT History and Physical Notes * HPI (History of Present Illness) Category Sub-Category Detail Notes Category Not es Symptom(s) patient is a 64 yo male here for annual visit with review of recent labs and follow up of chronic issues Depression Screening PHQ-9 Little inte rest or pleasure in doing things: Not at all Feeling down, depressed, or hopeless: No t at all Trouble falling or staying asleep, or sl eeping too much: Not at all Feeling tired or having little energy: N ot at all Poor appetite or overeating: Not at all Feeling bad about yourself o r that you are a failure, or have let yourself or your family down: Not at all Trouble concentrating on thi ngs, such as reading the newspaper or watching television: Not at all Moving or speaking so slowly that other people could have noticed; or the opposite, being so fidgety or restless that you have been moving around a lot more than usual: Not at all Thoughts that you would be b pieter off or of hurting yourself in some way: Not at all Total Score: 0 Interpretation and Intervention Depression Venkatesh main Findings: Negative Follow-Up for Depression: : review of PH Q-9 found negative result, no follow-up needed SDOH Questions SDOH Questions In the past year have you been worried about losing housing?: No In the past year have you or any family members you live with been unable to get any of the following when it was really needed? Check all that apply:: None Fall Risk History Have you had any falls with injury i n the past year?: No Have you had two or more falls in the st year?: No Communication Needs Communication Needs Does the patient have a hearing impairment: No Does the patient have a vision impairmen t?: Yes If yes, what is the vision impairment?: Glasses Does the patient have a cognition impair ment?: No Examination Category Sub-Category Detail Notes Category Not es General Examination GENERAL APPEARANCE: well dev eloped, well nourished, in no acute distress HEAD: normocephalic, atrau matic EYES: pupils equal, round, reactive to light and accommodation, sclera non-icteric EARS: normal THROAT: clear NECK/THYROID: neck supple, full ra nge of motion, no cervical lymphadenopathy, no bruits HEART: regular rate and rhy thm, S1, S2 normal, no murmurs LUNGS: clear to auscultatio n bilaterally ABDOMEN: soft, nontender, non distended, bowel sounds present, normal, no organomegaly , no masses palpable NEUROLOGIC: nonfocal, motor stre ngth normal upper and lower extremities, sensory exam intact SKIN: warm and dry, no parish picious lesions EXTREMITIES: no clubbing, cyanosi s, or edema MALE GENITOURINARY: declined RECTAL EXAM: declined ORAL CAVITY: mucosa moist
--- OUTSIDE RECORDS SUMMARY | 2025-01-03 06:00 | XMS_ITS ---
Author Organization Alo Gomez MD Address [address] [place] [phone] Care Team Providers Care Administrative Judge Name Role Phone Alo Gomez Primary Care Provider Results Component Value Reference Range Notes PSA,Total (Free>4and<10) Reviewed date:01/06/2025 08:53:44 AM Interpretation: Performing Lab:[facility], [address] [place] [phone] Notes/Report: PSA,Total (Free>4and<10) 2.42 0.00-4.00 ng/mL A Free PSA was not [...] Chemiluminescent Microparticle Immunoassay (CMIA) REASON FOR VISIT PSA Encounters Encounter Location Date Provider Diagnosis Alo Gomez MD [address] [place] [address] [address] [place] [phone] 01/03/2025 Alo Gomez Rising PSA level R97.20 Assessments Encounter Date Diagnosis (ICD Code) Assessment Notes Treatment Notes Treatment Clinical Notes Section Notes 01/03/2025 Rising PSA level (ICD-10 - R97.20) Plan Of Treatment Next Appt Details Provider Name:Alo Diallo ier, 06/09/2025 07:00:00 AM, [address], [address], [place], [place], [phone], Provider Name:Alo Diallo ier, 06/13/2025 01:30:00 PM, [address], [address], [place], [place], [phone], Provider Name:Alo Diallo ier, 12/04/2025 07:45:00 AM, [address], [address], [place], [phone], Provider Name:Alo Diallo ier, 12/11/2025 01:00:00 PM, [address], [address], [place], [phone], Progress Notes * SILAS NIXONDOB:[birth year] (64 yo M)Acc No.[id number]:01/03/2025 Progress Note Patient: SILAS MCGUIRE Provider: Fartun Gomez MD :1960 A ge:64 Y S ex:Male Date:01/03/2025 Address:[address] [place], [place] [phone] Subjective: * Chief Complaints: * 1 . PSA. * Medical History: Objective: * Vitals: Assessment: * Assessment: 1. R ising PSA level - R97.20 (Primary) Plan: * Treatment: * Procedure Codes: 3 6415 VENIPUNCT, ROUTINE* * * The named appointment provid er may or may not be the originator of this progress note, and it is not deemed complete until electronically signed by the appointment provider. Sign off status: Pending * Provider: Fartun Gomez MD Date: 01/03/2025 Generated for Kg river/Ross/eTransmitting on: 02/04/2025 12:24 PM EDT
--- OUTSIDE RECORDS SUMMARY | 2025-01-09 12:00 | XMS_ITS ---
Author Organization Alo Gomez MD Address [address] [place] [address] [place] [phone] Care Team Providers Care Chief Port Director Name Role Phone Alo Gomez Primary Care Provider Allergies No Known Allergies REASON FOR VISIT 4 week Encounters Encounter Location Date Provider Diagnosis Alo Gomez MD [address] [place] [address] [place] [phone] 01/09/2025 Alo Gomez Plan Of Treatment Next Appt Details Provider Name:Alo dalton, 06/09/2025 07:00:00 AM, [address] [place] [address], [address], [phone], Provider Name:Alo dalton, 06/13/2025 01:30:00 PM, [address] [place] [address], [address], [phone], Provider Name:Alo dalton, 12/04/2025 07:45:00 AM, [address] [place] [address], [address], [phone], Provider Name:Alo dalton, 12/11/2025 01:00:00 PM, [address] [place] [address], [address], [phone], Progress Notes * SILAS NIXONDOB:[birth year] (64 yo M)Acc No.[id number]:01/09/2025 Progress Notes Patient: SILAS MCGUIRE Provider: Fartun Gomez MD :1960 A ge:64 Y S ex:Male Date:01/09/2025 Address:[address] [place], [place] [phone] Subjective: * Chief Complaints: * 1 . 4 week. * ROS: G eneral/Constitutional: Denies C hills. D enies F atigue. D enies F ever. D enies H eadache. E NT: Denies S ore throat. R espiratory: Denies C ough. D enies S hortness of breath at rest. D enies S hortness of breath with exertion. G astrointestinal: Denies D iarrhea. D enies N ausea. * Medical History: R efuses colonoscopy 2021 2023 still refusing colonoscopy. * Allergies: N .K.D.A. Objective: * Vitals: Assessment: Plan: * Treatment: * * The named appointment provid er may or may not be the originator of this progress note, and it is not deemed complete until electronically signed by the appointment provider. Sign off status: Pending * Provider: Fartun Gomez MD Date: 0 01/09/2025 Generated for Kg river/Ross/Kainitting on: 0 02/04/2025 12:24 PM EDT
--- OUTSIDE RECORDS SUMMARY | 2025-02-04 03:30 | XMS_ITS ---
Author Organization Alo Gomez MD Address [address] [place] [address] Drive [address] [place] [phone] Care Team Providers Care Telecom Specialist Name Role Phone Alo Gomez Primary Care Provider Results Component Value Reference Range Notes PSA,Total (Free>4and<10) (No t yet reviewed by provider) Interpretation: Performing Lab:[facility], [address] [place] [phone] Notes/Report: PSA,Total (Free>4and<10) 0.87 0.00-4.00 ng/mL A Free PSA was not [...] Chemiluminescent Microparticle Immunoassay (CMIA) REASON FOR VISIT one month repeat PSA Encounters Encounter Location Date Provider Diagnosis Alo Gomez MD [address] [place] [address] [place] [phone] 02/04/2025 Alo Gomez Rising PSA level R97.20 Assessments Encounter Date Diagnosis (ICD Code) Assessment Notes Treatment Notes Treatment Clinical Notes Section Notes 02/04/2025 Rising PSA level (ICD-10 - R97.20) Plan Of Treatment Pending Test Test Name Order Date PSA,Total (Free>4and<10) 02/04/2025 Next Appt Details Provider Name:Alo Diallo ier, 06/09/2025 07:00:00 AM, [address], [address], [place], [phone], Provider Name:Alo Diallo ier, 06/13/2025 01:30:00 PM, [address], [address], [place], [phone], Provider Name:Alo Diallo ier, 12/04/2025 07:45:00 AM, [address], [address], [place], [phone], Provider Name:Alo Diallo ier, 12/11/2025 01:00:00 PM, [address], [address], [place], [phone], Progress Notes * SILAS NIXONDOB:[birth year] (64 yo M)Acc No.[id number]:02/04/2025 Progress Note Patient: SILAS MCGUIRE Provider: Fartun Gomez MD :1960 A ge:64 Y S ex:Male Date:02/04/2025 Address:[address] [place], [place] [phone] Subjective: * Chief Complaints: * 1 . one month repeat PSA. * Medical History: Objective: * Vitals: Assessment: * Assessment: 1. R ising PSA level - R97.20 (Primary) Plan: * Treatment: * * The named appointment provid er may or may not be the originator of this progress note, and it is not deemed complete until electronically signed by the appointment provider. Sign off status: Pending * Provider: Fartun Gomez MD Date: 02/04/2025 Generated for Kg river/Ross/Kainitting on: 02/04/2025 12:25 PM EDT
[2025-02-04 11:23] LABS: PSA,Total (Free>4and<10) 0.87 ng/mL (0.00-4.00)
--- OUTSIDE RECORDS SUMMARY | 2025-02-04 12:25 | XMS_ITS | Patient Health Record ---
Author Organization Alo Gomez MD Address [address] [place], [place] [id number] Care Team Providers Care Home Visitor Name Role Phone Alo Gomez Primary Care Provider [phone] Allergies No Known Allergies Results Component Value Reference Range Notes Liver Panel Reviewed date:06/13/2024 05:27:53 PM Interpretation: Performing Lab:[facility], [address] [place] [phone] Notes/Report: Bilirubin Total 0.6 0.0-1.0 mg/dL Bilirubin Direct 0.2 0.0-0.5 mg/dL Aspartate Amino Transferase 54 5-37 U/L Alanine Aminotransferase 69 0-40 U/L Total Protein 7.3 6.5-8.0 g/dL Albumin Level 4.6 3.5-5.0 g/dL Alkaline Phosphatase 115 39-117 U/L Lipid Panel with Reflex Reviewed date:06/13/2024 05:29:06 PM Interpretation: Performing Lab:[facility], [address] [place] [phone] Notes/Report: Triglycerides 147 <150 mg/dL Desirable Triglyceride: less than 150 mg/dL Borderline High Triglyceride 150-199 mg/dL High Triglyceride: 200-499 mg/dL Very High Triglyceride: greater than or equal to 5OO mg/dL Cholesterol 159 <200 mg/dL Desirable Cholesterol: less than 200 mg/dL Borderline High Cholesterol: 200-239 mg/dL High Cholesterol: greater than 239 mg/dL LDL Cholesterol Calculated 87 <100 mg/dL Desirable LDL: less than 100 mg/dL Near Optimal/Above Optimal LDL: 110-129 mg/dL Borderline High LDL: 130-159 mg/dL High LDL: 160-189 mg/dL Very High LDL: greater than or equal to 190 mg/dL HDL Cholesterol 43 >40 mg/dL Desirable HDL: greater than 40 mg/dL Note: This HDL assay may give artificially low results in patients with liver disease. Comprehensive Met. Panel Reviewed date:12/05/2024 04:06:31 PM Interpretation: Performing Lab:[address] [phone] Notes/Report: Sodium 143 135-145 mmol/L Potassium 3.7 3.3-5.1 mmol/L Chloride 111 96-108 mmol/L Carbon Dioxide 23 22-29 mmol/L Anion Gap 13 12-20 Blood Urea Nitrogen 19 9-16 mg/dL Creatinine 0.91 0.5-1.4 mg/dL Estimated Glomerular Filt Rate > 60 Chronic Kidney Disease: Estimated GFR < 60 mL/min/1.73m2 Severe Kidney Disease: Estimated GFR < 15 mL/min/1.73m2 Glucose Random 112 60-115 mg/dL Calcium 9.1 8.4-10.2 mg/dL Bilirubin Total 0.5 0.0-1.0 mg/dL Aspartate Amino Transferase 65 5-37 U/L Alanine Aminotransferase 78 0-40 U/L Total Protein 6.6 6.5-8.0 g/dL Albumin Level 4.5 3.5-5.0 g/dL Alkaline Phosphatase 86 39-117 U/L PSA,Total (Free>4and<10) Reviewed date:01/06/2025 08:53:44 AM Interpretation: Performing Lab:[address] [phone] Notes/Report: PSA,Total (Free>4and<10) 2.42 0.00-4.00 ng/mL A [...] Castro Alinity i Chemiluminescent Microparticle Immunoassay (CMIA) PSA,Total (Free>4and<10) (No t yet reviewed by provider) Interpretation: Performing Lab:[facility], [address] [place] [phone] Notes/Report: PSA,Total (Free>4and<10) 0.87 0.00-4.00 ng/mL A [...] Castro Alinity i Chemiluminescent Microparticle Immunoassay (CMIA) Reason For Referral No Information Medications Medication SIG (Take, Route, Frequency, Duration) Notes Start Date End Date Status Losartan Potassium 100 MG TAKE 1 TABLET BY MOUTH ONCE DAILY Active Metoprolol Tartrate 100 MG TAKE 1 TABLET BY MOUTH TWICE DAILY WITH FOOD Active NIFEdipine ER Osmotic Release 60 MG TAKE 1 TABLET BY MOUTH ONCE DAILY ON AN EMPTY STOMACH Active Atorvastatin Calcium 80 MG TAKE 1 TABLET BY MOUTH ONCE DAILY Active Fish Oil 1200 MG 1 capsule Orally Onc e a day for 30 day(s) Active Aspirin 81 81 MG 1 tablet Orally Once a day for 30 day(s) Active Immunizations Vaccine Route Administration Date Status Comme nts Fluarix Quadrivalent Unknown 08/06/2021 Refused Covid Vaccine Unknown 08/06/2021 Refused Social History Tobacco Use: Social History Observation [...] Never (0 point) Points 2 Interpretation Negative Problems Problem Type SNOMED Code ICD Code Onset Dates Problem Status W/U Status Risk Notes Problem 32476637 Essential hypert ension (I10) Active confirmed Problem 67302004 Hypercholesterol emia (E78.00) Active confirmed Vital Signs Blood pressure diastolic 70 mm Hg 12/09/2024 Height 73 in 12/09/2024 Blood pressure systolic 144 mm Hg 12/09/2024 Weight 230 lbs 12/09/2024 BMI 30.34 kg/m2 12/09/2024 Encounters Encounter Location Date Provider Diagnosis Alo Gomez MD [address] [place] [id number] 01/03/2025 Alo Gomez Rising PSA level R97 .20 Alo Gomez MD [address] [place] [address] Drive [address] [place] [id number] 02/04/2025 Alo Gomez Rising PSA level R97 .20 Alo Gomez MD [address] [place] [id number] 06/18/2024 Alo Gomez Elevated LFTs R79.89 ; Hypercholesterolemia E78.00 ; Essential hypertension I10 and Hip pain, left M25.552 Alo Gomez MD [address] [place] [id number] 12/09/2024 Alo Gomez Rising PSA level R97 .20 ; Encounter for general adult medical examination without abnormal findings Z00.00 ; Hypercholesterolemia E78.00 ; Essential hypertension I10 and Depression screening Z13.31 Assessments Encounter Date Diagnosis (ICD Code) Assessment Notes Treatment Notes Treatment Clinical Notes Section Notes 01/03/2025 Rising PSA level (IC D-10 - R97.20) 02/04/2025 Rising PSA level (IC D-10 - R97.20) 06/18/2024 Elevated LFTs (ICD-1 0 - R79.89) needs to cut back on wine may also be from his statin, will continue to monitor 06/18/2024 Hypercholesterolemia (ICD-10 - E78.00) doing well on meds, will cntinue current regiment 12/09/2024 Rising PSA level (IC D-10 - R97.20) will recheck in 3 months 12/09/2024 Encounter for genera l adult medical examination without abnormal findings (ICD-10 - Z00.00) Labs reviewed and discussed with patient 06/18/2024 Essential hypertensi on (ICD-10 - I10) well controlled, stable at goal, will continue currebt regiment 12/09/2024 Hypercholesterolemia (ICD-10 - E78.00) doing well on meds, will contonue current regiment 06/18/2024 Hip pain, left (ICD- 10 - M25.552) 12/09/2024 Essential hypertensi on (ICD-10 - I10) well controlled, will continue current regiment 12/09/2024 Depression screening (ICD-10 - Z13.31) negative screen Plan Of Treatment Pending Test Test Name Order Date US SOFT TISSUE 10/18/2022 PSA,Total (Free>4and<10) 02/04/2025 Next Appt Details Provider Name:Alo sotelor, 06/09/2025 07:00:00 AM, [address] [place] [address], [address] [place] [address], [phone], Provider Name:Alo Diallo ier, 06/13/2025 01:30:00 PM, [address] [place] [address], [address] [place] [address], [phone], Provider Name:Alo Diallo ier, 12/04/2025 07:45:00 AM, [address] [place] [address], [address] [place] [address], [phone], Provider Name:Alo sotelor, 12/11/2025 01:00:00 PM, [address] [place] [address], [address] [place] [address], [phone], Insurance Providers Payer Name Payer Address Payer Phone Subscriber Number Group Number Insured Name Patient Relationship to Insured Coverage Start Date Coverage End Date [address] [place] [phone] [id number] SILAS COOPER Self - patient is the insured Medical (General) History Medical History History ICD Code refuses colonoscopy 2021 2023 still refu sing colonoscopy
== END 2025-02-04 10:35 | disposition home or self-care (01) ==
LOC: HO.LNP 10:34
PROVIDERS: Visit Provider Internal Medicine
DX: R97.20 Elevated prostate specific antigen [PSA] (principal); Z12.5 Encounter for screening for malignant neoplasm of prostate
CPT/HCPCS: 84153